=== PATIENT | female | born 1980 | race African-American/Black ===

== ENCOUNTER 2017-03-24 16:52 | Emergency (ER) | payer OTHER ==
[~2017-03-24] VITALS: Ht 165.1 cm; Wt 83.0 kg
[~2017-03-24 16:52] MED LIST: CIPR500T2 PO; LOPE2 PO; Z.0.NO CURRENT MEDS; ZOFR4TAB3 SL
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
== END 2017-03-24 18:27 | disposition home or self-care (01) ==
LOC: HOBED 16:52
DX: O26.93 Pregnancy related conditions, unspecified, third trimester (principal); V49.49XA Driver injured in collision with other motor vehicles in traffic accident, initial encounter; Y92.410 Unspecified street and highway as the place of occurrence of the external cause; Z3A.31 31 weeks gestation of pregnancy
CPT/HCPCS: 59025

== ENCOUNTER → 2017-05-19 | Outpatient (CLI) | payer OTHER | LOC: HPND 08:59 | PROVIDERS: ATTEND Obstetrics & Gynecology | DX: O36.5930 Maternal care for other known or suspected poor fetal growth, third trimester, not applicable or unspecified (principal) | CPT/HCPCS: 76816; 76818; 76820; 76821 ==